=== PATIENT | male | born 1995 | race African-American/Black ===

== ENCOUNTER 2017-11-24 16:00 | Emergency (ER) | payer OTHER ==
[~2017-11-24] VITALS: Ht 185.4 cm; Wt 95.9 kg
[~2017-11-24 16:00] MED LIST: POLY10O LEFT EYE
[2017-11-24 16:02] VITALS: BP 143/93; PULSE 72; RESP 16; TEMP 99.2; O2SAT 99
--- NOTE | 2017-11-24 17:18 | PD ---
HPI Chief Complaint: Skin Problem Time Seen by Provider: 16:41 Travel History International Travel<30 days: No Contact w/Intl Traveler<30days: No Traveled to known affect area: No History of Present Illness HPI This is a 22-year-old male here requesting earing removal. He has been unable to remove his earrings for one week. Patient is currently on Bactrim and Keflex for abscess to bilateral ears caused by earrings. He was unable to remove the earring because the backing embedded into the earlobe by going through the earring hole. Symptom severity is moderate. No aggravating or alleviating factors. PFSH Past Medical History Diminished Hearing: No Social History Alcohol Use: No Tobacco Use: No Substance Use: No Allergies-Medications (Allergen,Severity, Reaction): Coded Allergies: No Known Allergies (Unverified , 03/28/12) Reported Meds & Prescriptions Reported Meds & Active Scripts Active Polytrim Opth (Polymyxin/Trimethoprim Sulfate) 10 Ml Soln 1 Drop LEFT EYE Q4 7 Days Review of Systems Except as stated in HPI: all other systems reviewed are Neg General / Constitutional: No: Fever Physical Exam Narrative GENERAL: Alert and well-appearing male. SKIN: Warm and dry. HEAD: Normocephalic. EYES: No scleral icterus. EARS: Mild swelling to both earlobes. Small keloid scar tissue at the site of the piercing. Earring backings or embedded into the earlobe and not visualized but are easily palpable. NECK: Supple, trachea midline. No lymphadenopathy. Data Data Last Documented VS Vital Signs Date Time Temp Pulse Resp B/P (MAP) Pulse Ox O2 Delivery O2 Flow Rate FiO2 11/24/17 17:20 11/24/17 16:02 99.2 72 16 99 [facility] Medical Decision Making Medical Screen Exam Complete: Yes Emergency Medical Condition: Yes Differential Diagnosis Earring removal, subcutaneous foreign body, wound infection Narrative Course This is a 22-year-old male here requesting earing removal. Patient is currently on Bactrim and Keflex for abscess to bilateral ears caused by earrings. He was unable to remove the earring because the backing embedded into the earlobe by going through the earring hole. Both earrings were removed by making small incision to remove the embedded backing. The risk of scar tissue and keloid was discussed at length with patient. He verbalizes understanding and requests that I remove them here in the ER. He tolerated procedure well. He was instructed to continue his current antibiotics. Procedures Procedure Narrative Earrings removal: Earlobes prepped with Betadine. 1% lidocaine used to anesthetize the lobe. Small 2 mm incision made with #11 blade in order to remove embedded earring backing. Patient tolerated procedure well Diagnosis Primary Impression: Foreign body in subcutaneous tissue Referrals: Plastic Surgeon Additional Instructions: Your earrings were removed today. Do not insert new earrings. Continue antibiotics as prescribed. Follow-up with plastic surgeon if you wish to inquire about keloid treatment Disposition: 01 DISCHARGE HOME Condition: Stable Terrie Lewis Nov 24, 2017 17:18
== END 2017-11-24 17:44 | disposition home or self-care (01) ==
LOC: NEPK 16:00
DX: S00.452A Superficial foreign body of left ear, initial encounter (principal); S00.451A Superficial foreign body of right ear, initial encounter; X58.XXXA Exposure to other specified factors, initial encounter
CPT/HCPCS: 10120